=== PATIENT | female | born 1990 | race Caucasian/White ===

== ENCOUNTER 2018-02-19 11:04 | Emergency (ER) | payer OTHER ==
[2018-02-19 11:12] VITALS: O2SAT 99
[2018-02-19] MEDS ORDERED: Silver Sulfadiazine 1% Cream (20 gm) TOP STA (11:59)
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
[2018-02-19] MEDS ORDERED: Silver Sulfadiazine 1% Cream (20 gm) ONE (12:16)
[2018-02-19 13:22] VITALS: BP 106/79; PULSE 68; RESP 18; TEMP 98
== END 2018-02-19 12:45 | disposition home or self-care (01) ==
LOC: C.ER 11:04
DX: T23.222A Burn of second degree of single left finger (nail) except thumb, initial encounter (principal); T20.16XA Burn of first degree of forehead and cheek, initial encounter; T20.13XA Burn of first degree of chin, initial encounter; X19.XXXA Contact with other heat and hot substances, initial encounter; Y92.89 Other specified places as the place of occurrence of the external cause; Y99.0 Civilian activity done for income or pay